=== PATIENT | male | born 1945 | race Caucasian/White ===

== ENCOUNTER 2016-09-21 08:03 | Inpatient (IN) | payer OTHER ==
[2016-09-21] VITALS (15 sets, daily range): BP systolic 135–217; BP diastolic 61–89
[~2016-09-21] VITALS: Ht 175.3 cm; Wt 91.3 kg
[~2016-09-21 08:03] MED LIST: ASPIRIN81 M1 PO; AVAPRO300 MG PO; B12 PO; CALCIUM + D TA1 EACH PO; CHOLESTEROL MED; DIOVAN HCT 31 TABLET PO; GLUCOPHAGE XR,500 MG PO; GLUCOPHAGE1000 MG PO; GLUCOSAMINE-CH1 EA12 PO; GLUCOSAMINE/CHONDROI PO; INSULIN; LEVEMIR FL100 UNITS/ PO; LIPITOR40 MG PO; LO-DOSE ASPIRIN81 M2 PO; LOPRESSOR25 MG PO; OTHER MEDS; PLAVIX75 MG PO; POTASSIUM-9999 MG PO; SIMVASTATIN5 MG PO; TRICOR145 MG PO; TRILIPIX135 MG PO; ZESTORETIC 20-1 EAC1 PO; ZETIA10 MG PO
[2016-09-21 08:38] LABS: POINT-OF-CARE METER ID UU14174212
[2016-09-21] MEDS ORDERED: PRANDIN0.5 MG PO (08:58)
[2016-09-21 13:53] LABS: POINT-OF-CARE METER ID UU13113675
[2016-09-21 17:03] LABS: METH RESISTANT S AUREUS PCR NEGATIVE (NEGATIVE)
[2016-09-21 17:05] LABS: PROBE CHECK PASS; SPECIMEN PROCESSING CONTROL PASS
[2016-09-21] MEDS ORDERED: HYDROCODON-ACE1 EAC7 PO (17:51)
[2016-09-22] VITALS (8 sets, daily range): BP systolic 142–177; BP diastolic 61–75
== END 2016-09-22 10:40 | disposition home or self-care (01) | DRG 39 ==
LOC: 2SOUTH 08:03 → 4WEST 14:57
PROVIDERS: Surgery
PROC: 03CN0ZZ Extirpation of Matter from Left External Carotid Artery, Open Approach (ICD-10-PCS; principal; 2016-09-21)
PROC: 03CL0ZZ Extirpation of Matter from Left Internal Carotid Artery, Open Approach (ICD-10-PCS; principal; 2016-09-21)
DX: I65.22 Occlusion and stenosis of left carotid artery (principal)
CPT/HCPCS: 36415; 80048; 82948; 85025; 87641; 93005; C1768; J0360; J1170; J1644; J1650; J1815; J2250; J2720; J2795; J3010; J7120

== ENCOUNTER 2016-12-29 12:39 | Inpatient (IN) | payer OTHER ==
[~2016-12-29] VITALS: Ht 175.3 cm; Wt 94.5 kg
[~2016-12-29 12:39] MED LIST changes: +HYDROCODON-ACE1 EAC7 PO; +PRANDIN0.5 MG PO
[2016-12-29 12:55] LABS: POINT-OF-CARE METER ID UU13113778
[2016-12-29 13:42] LABS: BASOPHIL COUNT 0.1 K/uL (0-0.1); EOSINOPHIL (%) 3.8 % (0-5); EOSINOPHIL COUNT 0.3 K/uL (0-0.3); HEMATOCRIT 43.2 % (38.0-50.0); IMMATURE GRANULOCYTE (%) 0.4 % (0.0-0.7); INSTRUMENT ABS NEUTROPHIL CT 4.4 K/uL; LYMPHOCYTE COUNT 2.6 K/uL (1.0-2.8); MCH 29.1 PG (29.0-34.0); MCHC 33.1 G/DL (30.0-36.0); MCV 87.8 FL (86-99); MEAN PLAT.VOLUME 9.9 uM^3 (9.0-12.4); MONOCYTE (%) 8.2 % (3-12); MONOCYTE COUNT 0.7 K/uL (0-0.8); NEUTROPHIL (%) 54.9 % (45-76); NEUTROPHIL COUNT 4.4 K/uL (1.8-6.4); PLATELET COUNT 280 K/uL (156-360); RBC DIS.WIDTH-CV 13.7 % (11.8-14.6); RBC DIS.WIDTH-SD 43.9 % (39-53); RED BLOOD COUNT 4.92 M/uL (4.00-5.50); WHITE BLOOD COUNT 8.1 K/uL (4.1-10.2)
[2016-12-29 13:47] LABS: CARBON DIOXIDE (BICARBONATE) 25.1 MEQ/L (20-31)
[2016-12-29 13:51] LABS: CHLORIDE 109 mEq/L (99-109); POTASSIUM 4.2 mEq/L (3.7-5.4); SODIUM 141 mEq/L (136-147)
[2016-12-29 13:53] LABS: GLUCOSE 265 mg/dL (70-99)
[2016-12-29 13:54] LABS: ANION GAP 12 MEQ/L (2-14)
[2016-12-29 13:57] LABS: GFR ESTIMATE (CALCULATED) 58 mL/min/; UREA NITROGEN (BUN) 20 mg/dL (9-23)
[2016-12-29 13:59] LABS: CREATINE KINASE 46 IU/L (1-294)
[2016-12-29 14:05] LABS: TROP-I INTERPRETATION NEGATIVE; TROPONIN-I < 0.01 ng/mL (0.0-0.30)
[2016-12-29 14:29] LABS: INFLUENZA A VIRAL ANTIGEN NEGATIVE; INFLUENZA B VIRAL ANTIGEN NEGATIVE
[2016-12-29 14:31] LABS: ADD MIUA? NO; BILIRUBIN NEGATIVE; BLOOD NEGATIVE; COLOR YELLOW ((YELLOW)); GLUCOSE (STRIP) >=500; KETONES NEGATIVE; LEUKOCYTES NEGATIVE; NITRITE NEGATIVE; PROTEIN (STRIP) NEGATIVE; SPECIFIC GRAVITY 1.022 (1.000-1.030); UCUL ADDED? NO; UROBILINOGEN 0.2 MG/DL (0.2-1.0)
[2016-12-29] MEDS ORDERED: CRESTOR10 MG PO (16:22)
[2016-12-29] MEDS ORDERED: TRICOR145 MG PO (16:22)
[2016-12-29 16:50] VITALS: BP 153/71
[2016-12-29 19:44] VITALS: BP 153/71
[2016-12-29 22:14] LABS: POINT-OF-CARE METER ID UU14174225
[2016-12-30] VITALS (7 sets, daily range): BP systolic 162–195; BP diastolic 68–88
[2016-12-30 00:58] LABS: TROP-I INTERPRETATION NEGATIVE; TROPONIN-I < 0.01 ng/mL (0.0-0.30)
[2016-12-30 05:38] LABS: HEMATOCRIT 42.3 % (38.0-50.0); MCH 29.3 PG (29.0-34.0); MCHC 32.9 G/DL (30.0-36.0); MCV 89.1 FL (86-99); MEAN PLAT.VOLUME 10.1 uM^3 (9.0-12.4); PLATELET COUNT 235 K/uL (156-360); RBC DIS.WIDTH-CV 13.7 % (11.8-14.6); RBC DIS.WIDTH-SD 44.6 % (39-53); RED BLOOD COUNT 4.75 M/uL (4.00-5.50); WHITE BLOOD COUNT 7.7 K/uL (4.1-10.2)
[2016-12-30 06:02] LABS: TROP-I INTERPRETATION NEGATIVE; TROPONIN-I < 0.01 ng/mL (0.0-0.30)
[2016-12-30 06:28] LABS: ANION GAP 7 MEQ/L (2-14); CHLORIDE 110 MEQ/L (99-109); GFR ESTIMATE (CALCULATED) > 59 mL/min/; GLUCOSE 177 mg/dL (70-99); HDL CHOLESTEROL 35 MG/DL (Desirable>=40); LDL CHOLESTEROL 87 mg/dL (Desirable<100); NON-HDL CHOLESTEROL 107 mg/dL (Desirable<160); POTASSIUM 4.2 MEQ/L (3.7-5.4); SAMPLE HEMOLYSIS CHECK 0; SAMPLE ICTERIC CHECK 0; SAMPLE LIPEMIA CHECK 0; SODIUM 141 MEQ/L (136-147); TOTAL CHOLESTEROL 142 mg/dL (Desirable<200); TRIGLYCERIDES 99 MG/DL (Normal: <150); UREA NITROGEN (BUN) 20 mg/dL (9-23)
[2016-12-31 03:54] VITALS: BP 163/71
[2016-12-31 08:46] LABS: POINT-OF-CARE METER ID UU14174225
[2016-12-31 08:56] VITALS: BP 121/66
[2016-12-31 10:01] LABS: Estimated Average Glucose 203 mg/dL (70-123); HEMOGLOBIN A1c (GLYCOHEMOGLOB) 8.7 % HGB (Below 5.7)
[2016-12-31] MEDS ORDERED: CLOPIDOGREL75 MG PO (11:43)
[2016-12-31 12:21] VITALS: BP 132/78
== END 2016-12-31 13:28 | disposition home or self-care (01) | DRG 66 ==
LOC: EME 12:39 → EDOF 15:14 → 5SOUTH 15:14
PROVIDERS: Emergency Medicine; Internal Medicine
DX: I63.9 Cerebral infarction, unspecified (principal); E11.65 Type 2 diabetes mellitus with hyperglycemia; E86.0 Dehydration; I10 Essential (primary) hypertension; I48.2 Chronic atrial fibrillation; I44.0 Atrioventricular block, first degree; G47.33 Obstructive sleep apnea (adult) (pediatric); G47.10 Hypersomnia, unspecified; Z79.82 Long term (current) use of aspirin; Z95.2 Presence of prosthetic heart valve; I65.22 Occlusion and stenosis of left carotid artery; I65.02 Occlusion and stenosis of left vertebral artery; R53.83 Other fatigue; Z87.891 Personal history of nicotine dependence
CPT/HCPCS: 70450; 70544; 70551; 71010; 80048; 80061; 81003; 82550; 82803; 82948; 83036; 84484; 85025; 85027; 87502; 93005; 93880; 99281; 99285; J1650; J1815; J7120

== ENCOUNTER 2017-09-25 10:33 | Emergency (ER) | payer OTHER ==
[~2017-09-25] VITALS: Ht 175.3 cm; Wt 100.0 kg
[~2017-09-25 10:33] MED LIST changes: +CLOPIDOGREL75 MG PO; +CRESTOR10 MG PO
[2017-09-25 11:42] LABS: HEMATOCRIT 46.3 % (38.0-50.0); HEMOGLOBIN 15.4 G/DL (12.5-16.6); MCH 28.6 PG (29.0-34.0); MCHC 33.3 G/DL (30.0-36.0); MCV 85.9 FL (86-99); PLATELET COUNT 265 K/uL (156-360); RBC DIS.WIDTH-CV 13.3 % (11.8-14.6); RBC DIS.WIDTH-SD 41.8 % (39-53); RED BLOOD COUNT 5.39 M/uL (4.00-5.50); WHITE BLOOD COUNT 9.1 K/uL (4.1-10.2)
[2017-09-25 11:56] LABS: ALBUMIN 4.1 g/dL (3.2-4.8)
[2017-09-25 11:57] LABS: CHLORIDE 103 mEq/L (99-109); POTASSIUM 4.3 mEq/L (3.7-5.4); SODIUM 135 mEq/L (136-147)
[2017-09-25 11:59] LABS: GLUCOSE 362 mg/dL (70-99); TOTAL PROTEIN 7.3 g/dL (6.4-8.3)
[2017-09-25 12:01] LABS: TOTAL BILIRUBIN 0.4 mg/dL (0.0-1.0)
[2017-09-25 12:02] LABS: ALKALINE PHOSPHATASE 60 IU/L (3-129)
[2017-09-25 12:03] LABS: CREATININE 1.3 mg/dL (0.6-1.3); GFR ESTIMATE (CALCULATED) 57 mL/min/ (58.99-99999)
[2017-09-25 12:04] LABS: AST (GOT) 15 IU/L (2-34); UREA NITROGEN (BUN) 19 mg/dL (9-23)
[2017-09-25 12:05] LABS: ALT (GPT) 17 IU/L (3-49)
[2017-09-25 13:10] LABS: APPEARANCE CLEAR ((CLEAR)); BILIRUBIN NEGATIVE; BLOOD NEGATIVE; COLOR YELLOW ((YELLOW)); GLUCOSE (STRIP) >=500; KETONES NEGATIVE; LEUKOCYTES NEGATIVE; NITRITE NEGATIVE; PROTEIN (STRIP) NEGATIVE; SPECIFIC GRAVITY 1.015 (1.000-1.030); UCUL ADDED? NO; UROBILINOGEN 0.2 MG/DL (0.2-1.0)
[2017-09-25 14:47] LABS: LIPASE 30 U/L (1.0-51.0)
[2017-09-25] MEDS ORDERED: PERCOCET 5/31 TABLET PO (16:36)
[2017-09-25 16:41] VITALS: BP 171/83
== END 2017-09-25 16:41 | disposition home or self-care (01) ==
LOC: EME 10:33
DX: N20.0 Calculus of kidney (principal); E11.65 Type 2 diabetes mellitus with hyperglycemia; I10 Essential (primary) hypertension; E78.5 Hyperlipidemia, unspecified; Z87.442 Personal history of urinary calculi; Z79.84 Long term (current) use of oral hypoglycemic drugs; Z95.2 Presence of prosthetic heart valve; Z88.0 Allergy status to penicillin
CPT/HCPCS: 74176; 80053; 81003; 82010; 83690; 85027; 99281; 99284